=== PATIENT | female | born 1945 | race Caucasian/White ===

== ENCOUNTER 2018-08-06 16:09 | Emergency (ER) | payer SELFPAY ==
[2018-08-06 16:11] VITALS: BP 147/69; PULSE 74; RESP 14; TEMP 36.5; O2SAT 97
--- NOTE | 2018-08-06 16:12 | DI.RAD.S_ITS ---
PROCEDURE: XR WRIST LT MIN 3V INDICATIONS: fall TECHNIQUE: 3 views of the wrist were acquired. COMPARISON: None. FINDINGS: Bones: There is deformity and sclerosis of the distal radial metaphysis without definite cortical disruption, which may be related to a chronic fracture. An old ulnar styloid process fracture is present. Degenerative changes of the basal joint of the thumb are present. Soft tissues: No suspicious soft tissue calcifications. Soft tissue swelling about the wrist is present. IMPRESSION: Abnormal appearance of the distal radius most likely is related to previous fracture with residual deformity. No definite acute fracture is evident. Clinical correlation is recommended. The need for further evaluation utilizing CT may be determined clinically. Dictated by: Kobi Escalera M.D. on 08/06/2018 at 15:46 Approved by: Kobi Escalera M.D. on 08/06/2018 at 15:49
--- NOTE | 2018-08-06 16:18 | ED.UPPEXIN ---
HPI - Extremity Injury (Upper) <BRYAN Wray - Last Filed: 08/06/18 17:10> General Chief Complaint: Extremity Injury, Upper Stated Complaint: left wrist pain from fall Time Seen by Provider: 08/06/18 16:11 Source: patient Mode of arrival: ambulatory Limitations: no limitations History of Present Illness HPI narrative: A 73 year healthy male presents emergency department for left wrist pain after falling on an outstretched hand 2 days ago after she tripped on the sidewalk. Patient states she noted some bruising today and a little bit of pain when she pressed on the area of her snuffbox. Denies dizziness, chest pain, shortness of breath, pain in her elbow, no LOC, shoulder pain, or any other injuries. MD complaint: injury to: left Onset (ago): day(s) Other injuries: none Relieving factors: cold therapy Exacerbating factors: movement of extremity Context: fall Associated symptoms: denies other symptoms Review of Systems <BRYAN Wray - Last Filed: 08/06/18 17:10> Review of Systems REVIEW OF SYSTEMS: GENERAL: Denies fever or chills. HENT: No head trauma, hearing loss or sore throat. EYES: No loss of vision, double vision, eye pain, or irritation. CARDIOVASCULAR: No chest pain or syncope. RESPIRATORY: No shortness of breath or cough. GASTROINTESTINAL: No nausea, vomiting, diarrhea, or constipation. GENITOURINARY: No flank pain or dysuria. MUSCULOSKELETAL: Complains of left wrist pain, see HPI. INTEGUMENTARY: No rash, lesions, or pruritus. NEURO: No numbness, tingling, memory loss, or confusion. PSYCH: No behavior or mood changes. PFSH <BRYAN Wray - Last Filed: 08/06/18 17:10> Medical History No significant medical problems (Acute) Social History (Updated 08/06/18 @ 17:04 by BRYAN Wray) Smoking Status: Never smoker Social History Smoking Status: Never smoker Exam <BRYAN Wray - Last Filed: 08/06/18 17:10> Initial Vital Signs Initial Vital Signs: Vital Signs Temperature 97.7 F 08/06/18 16:11 Pulse Rate 74 08/06/18 16:11 Respiratory Rate 14 08/06/18 16:11 Blood Pressure 147/69 H 08/06/18 16:11 Pulse Oximetry 97 08/06/18 16:11 PHYSICAL EXAMINATION: GENERAL: Well groomed, alert, and cooperative. Answers questions promptly and appropriately. Vital signs noted. HENT: Normocephalic, atraumatic. EYES: Sclera white, conjunctiva pink, no periorbital swelling. RESPIRATORY: Normal respiratory rate, trachea midline, airway patent. MUSCULOSKELETAL: Normal gait and coordination. Equal tone and mass bilaterally. Minor Tenderness to left snuffbox with deep palpation, an area about 4 x 4cm of dark bruising located around the snuffbox, slight swelling noticed around wrist. No tenderness to wrist, metacarpals, or phalanges. Full range of motion to wrist, elbow, hand, and fingers. No rashes or lesions. EXTREMITIES: CMS intact. Moves all extremities pain, radial pulses intact bilaterally. SKIN: Warm, dry, soft, appropriate color for ethnicity. No lesions, rashes, or wounds. NEURO: Alert and Oriented X 3. Good coordination. No ataxia, or sensory deficits, or cognitive issues. PSYCH: Appropriate affect and mood. <Charlene Gann DO - Last Filed: 08/09/18 07:29> Initial Vital Signs Initial Vital Signs: Vital Signs Temperature 97.7 F 08/06/18 16:11 Pulse Rate 74 08/06/18 16:11 Respiratory Rate 14 08/06/18 16:11 Blood Pressure 147/69 H 08/06/18 16:11 Pulse Oximetry 97 08/06/18 16:11 Course <BRYAN Wray - Last Filed: 08/06/18 17:10> Course Narrative: Patient stated she did not need anything for pain. Orders Ordered: ED Orders 08/06/18 16:12 XR wrist LT min 3V Stat Consultations Consultation #1: Patient staffed with Dr. Gann. Vital Signs - 8 hr 08/06/18 16:11 Temperature 97.7 F Pulse Rate 74 Respiratory Rate 14 Blood Pressure 147/69 H Pulse Oximetry 97 <Charlene Gann DO - Last Filed: 08/09/18 07:29> Orders Ordered: ED Orders 08/06/18 16:12 XR wrist LT min 3V Stat Vital Signs - 8 hr 08/06/18 16:11 Temperature 97.7 F Pulse Rate 74 Respiratory Rate 14 Blood Pressure 147/69 H Pulse Oximetry 97 [facility] [place] - Extremity Injury (Upper) <BRYAN Wray - Last Filed: 08/06/18 17:10> Medical Records Attestation: I reviewed the patient's medical records. Lab Data Attestation: I reviewed the patient's lab results. Imaging Data Left Wrist XR: Radiologist's impression: [address] [address] XRay Report Signed Patient: Karen Mancia#: [id number] : 5Acct:[id number] Age/Sex: 73 / FDate of Service: 08/06/18 Loc: ED Accession Number: [id number] Procedure: XR wrist LT min 3V Ordering Provider: Audelia Luke PROCEDURE: XR WRIST LT MIN 3V INDICATIONS: fall TECHNIQUE: 3 views of the wrist were acquired. COMPARISON: None. FINDINGS: Bones: There is deformity and sclerosis of the distal radial metaphysis without definite cortical disruption, which may be related to a chronic fracture. An old ulnar styloid process fracture is present. Degenerative changes of the basal joint of the thumb are present. Soft tissues: No suspicious soft tissue calcifications. Soft tissue swelling about the wrist is present. IMPRESSION: Abnormal appearance of the distal radius most likely is related to previous fracture with residual deformity. No definite acute fracture is evident. Clinical correlation is recommended. The need for further evaluation utilizing CT may be determined clinically. Dictated by: Kobi Escalera M.D. on 08/06/2018 at 15:46 Approved by: Kobi Escalera M.D. on 08/06/2018 at 15:49 [facility] [place] Narrative Medical decision making narrative: Lower suspicion of fracture CT negative x-ray, however extensive discussion with patient about snuffbox tenderness and the importance of repeat imaging if she continues to have symptoms. Additionally, patient able to move her wrist, her hand, and all of her fingers. There is minor swelling and a bit of bruising around the area. Chief strict return precautions given and follow-up instructions discussed. No concern of head injury as patient denies having had any follow-up. Patient also reports detailed mechanical fall, no suspicion for syncope and she denies any symptoms at the time and currently. Discharge Plan Departure Patient Disposition: Home Clinical Impression: Acute wrist pain Qualifiers: Laterality: left Qualified Code(s): M25.532 - Pain in left wrist Discharge Date/Time: 08/06/18 17:07 Interventions: ED Discharge Assessment Last Done: 08/06/18 17:07 Instructions: DI for Wrist Sprain Activity Restrictions/Additional Instructions: Thank you for entrusting me with your care today. As discussed, your x-rays were negative for any acute fractures. However, I recommend following up with her primary care provider in the next few weeks if possible especially if your symptoms continue. You may use a wrap or for a Velcro splint for the next week or so to help with pain. Use Tylenol as needed for pain as well. Return to the emergency department if he develops chest pain, shortness of breath, syncope, blood in her stool or vomit. <Charlene Gann DO - Last Filed: 08/09/18 07:29> Cosign ED Attending Cosgladysature Attestation: I was immediately available in the department for consultation. Documentation has been reviewed. I agree with assessment and plan.
[2018-08-06 17:07] VITALS: BP 130/78; PULSE 70; RESP 14; O2SAT 99
== END 2018-08-06 17:07 | disposition home or self-care (01) ==
PROVIDERS: Emergency Provider Nurse Practitioner
DX: M25.532 Pain in left wrist (principal); W01.0XXA Fall on same level from slipping, tripping and stumbling without subsequent striking against object, initial encounter
CPT/HCPCS: 73110; 99283